=== PATIENT | male | born 1960 | race Caucasian/White ===

== ENCOUNTER → 2020-12-17 08:05 | Outpatient (CLI) | payer OTHER | END | disposition home or self-care (01) | LOC: D.NM 08:05 | PROVIDERS: ATTEND Internal Medicine Gastroenterology | DX: K21.9 Gastro-esophageal reflux disease without esophagitis (principal); R11.0 Nausea; R10.84 Generalized abdominal pain; R63.4 Abnormal weight loss ==

== ENCOUNTER → 2020-12-22 08:06 | Outpatient (CLI) | payer OTHER | END | disposition home or self-care (01) | LOC: D.NM 08:06 | PROVIDERS: ATTEND Internal Medicine Gastroenterology | DX: K21.9 Gastro-esophageal reflux disease without esophagitis (principal); R11.0 Nausea; R10.84 Generalized abdominal pain; R63.4 Abnormal weight loss ==